=== PATIENT | male | born 1980 | race Caucasian/White ===

== ENCOUNTER 2022-10-19 15:59 | Emergency (ER) | payer OTHER, SELFPAY ==
[2022-10-19 16:00] VITALS: BP 144/86; PULSE 89; RESP 17; TEMP 36.7; O2SAT 99; BMI 22.4
[2022-10-19 16:06] VITALS: BP 144/86; PULSE 89; O2SAT 99
--- NOTE | 2022-10-19 16:17 | PC.NURSE ---
BLADDER SCAN AT THIS TIME 15MLS
--- NOTE | 2022-10-19 16:24 | CT_ITS ---
PROCEDURE INFORMATION: Exam: CT Abdomen And Pelvis Without Contrast Exam date and time: 10/19/2022 4:46 PM Age: 42 years old Clinical indication: Abdominal pain; Additional info: Abd pain TECHNIQUE: Imaging protocol: Computed tomography of the abdomen and pelvis without contrast. Radiation optimization: All CT scans at this facility use at least one of these dose optimization techniques: automated exposure control; mA and/or kV adjustment per patient size (includes targeted exams where dose is matched to clinical indication); or iterative reconstruction. REPORTING DATA: Count of CT and Cardiac NM exams in prior 12 months: This patient has received 0 known CTs and 0 known cardiac nuclear medicine studies in the 12 months prior to the current study. COMPARISON: No relevant prior studies available. FINDINGS: Limitations: The absence of intravenous contrast limits the assessment of vascular structures, lesions and lymphadenopathy. Lungs: Bibasilar subsegmental atelectasis noted. Liver: No focal hepatic lesions within the limits of noncontrast examination. Gallbladder and bile ducts: Gallbladder is distended without radiopaque cholelithiasis. No biliary ductal dilation. Pancreas: No peripancreatic fluid stranding. No main pancreatic ductal dilation. Spleen: No splenomegaly. Multiple splenic granulomas Adrenal glands: The adrenal glands are normal. Kidneys and ureters: No perinephric stranding. Bilateral punctate caliceal calculi. No hydroureteronephrosis on either side. Stomach and bowel: No bowel wall thickening or distention. Appendix: A normal appendix is identified. Intraperitoneal space: There is no evidence of free intraperitoneal or pelvic fluid. Vasculature: Aorta is nonaneurysmal. Lymph nodes: No evidence of retroperitoneal or mesenteric lymphadenopathy. Urinary bladder: Urinary bladder is unremarkable. Reproductive: Unremarkable as visualized. Bones/joints: No acute osseous abnormality. Soft tissues: Unremarkable. IMPRESSION: No perinephric stranding. Bilateral punctate caliceal calculi. No hydroureteronephrosis on either side.
--- NOTE | 2022-10-19 16:25 | HMH.EDABDPAI ---
Discharge Plan Disposition Patient Disposition: Home, Self-Care Condition: Good Referrals Follow up/Referrals: Provider,Referral, [Primary Care Provider] - See instructions Activity Restrictions/Add. Instructions Additional Instructions/Restrictions: Drink plenty of fluids to include water and oral rehydration solution such as Pedialyte or Gatorade. Return for worsening persistent pain, fever or other concerns. Clinical Impressions Clinical Impression: Abdominal pain Instructions Patient Instructions: DI for Acute Abdominal Pain Discharge ED Provider: Didier Mccabe Abdominal Pain HPI General Chief Complaint: Abdominal Pain Stated Complaint: abd pain Time Seen by Provider: 10/19/22 16:21 Mode of Arrival: Ambulatory Source of Information: Patient Limitations: No Limitations Description of Symptoms (Recalled from ER Triage Doc. by RN): PT REPORTS DECREASED URINARY OUTPUT FOR 2-3 DAYS WITH BACK AND ABDOMINAL PAIN. HX OF PROSTATITIS, RECENTLY TREATED ABOUT 1 MONTH AGO. 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 LAST USED ABOUT 3 DAYS AGO, HEROIN THIS AM History of Present Illness HPI narrative: Patient presents with a 3-day history of diffuse abdominal pain, back pain and flank pain as well as decreased urine output he does give a prior history of prostate infection as well as renal failure. He does have a known history of substance abuse and admits to having used heroin as recently as this morning stating however that he is also in drug court. He denies fever or vomiting. He denies diarrhea he denies chest pain Related Data Allergies Allergy/AdvReac Type Severity Reaction Status Date / Time Penicillins Allergy Verified 10/19/22 16:38 [facility] Disclaimer: The information contained in this section may have been updated after the patient was seen, as this information can be updated by other users. Social History Smoking Status: Current every day smoker alcohol intake: former current occupational status: employed Travel in the last 8 weeks: None ROS Obtained: Yes All systems reviewed & no additional complaints except as documented Physical Exam General General appearance: alert and in no apparent distress Head Head exam: atraumatic, normocephalic and normal inspection Eye Eye exam: Present normal appearance, PERRL and EOMI ENT ENT exam: Present normal exam, normal oropharynx, mucous membranes moist, TM's normal bilaterally and normal external ear exam Neck Neck exam: Present normal inspection, full ROM and trachea midline; Absent meningismus or lymphadenopathy Chest Chest inspection: Present normal inspection and symmetric chest wall rise; Absent tenderness Respiratory Respiratory exam: Present normal lung sounds bilaterally; Absent respiratory distress Cardiovascular Cardiovascular exam: Present regular rate and normal rhythm; Absent JVD Abdominal Exam Abdominal exam: Present tenderness (Mild periumbilical, extending into the flanks) Extremities Exam Extremities exam: Present normal inspection, full ROM and normal capillary refill; Absent calf tenderness Back Exam Back exam: Present normal inspection; Absent tenderness Neurological Exam Neurological exam: Present alert and oriented X3 Psychiatric Psychiatric exam: Present normal affect and normal mood Skin Skin exam: Present warm, dry, intact and normal color Lymphatic Lymphatic Findings: no adenopathy Medical Decision Making Medical Records Medical records reviewed: Yes I reviewed the patient's medical records. Alistair Inquiry Pt receiving controlled substance: No Alistair was queried for this patient: No Vital Signs: 10/19/22 16:00 10/19/22 16:06 10/19/22 17:00 Temperature 98.0 F Temperature Source Oral Pulse Rate 89 90 Pulse Rate [Radial] 89 Respiratory Rate 17 Blood Pressure 144/86 H 162/96 H Blood Pressure [Right Arm] 144/86 H Blood Pressure Mean 107 118 Blood Pr
--- NOTE | 2022-10-19 16:43 | PC.NURSE ---
PT TO CT
[2022-10-19 16:45] LABS: Basophils % 0.3 % (0.1-2.0); Eosinophils # 0.1 K/mm3 (0.0-0.4); Eosinophils % 0.6 % (0.1-12.0); Hematocrit 48.1 % (42.0-52.0); Hemoglobin 15.9 g/dL (14.1-18.0); Mean Corpuscular HGB Conc 33.1 g/dL (31.8-35.4); Mean Corpuscular Hemoglobin 31.3 pg (27.0-31.2); Mean Corpuscular Volume 94.7 fl (80-94); Mean Platelet Volume 7.5 fl (7.4-10.4); Monocytes # 0.5 K/mm3 (0.1-1.0); Monocytes % 4.6 % (1.7-9.3); Neutrophils # 8.9 K/mm3 (1.8-7.8); Neutrophils % 77.4 % (37.0-80.0); Platelet Count 239 K/mm3 (142-424); Red Blood Count 5.08 M/mm3 (4.60-6.20); Red Cell Distribution Width 13.5 % (11.5-17.5); White Blood Count 11.5 K/mm3 (4.8-10.8)
[2022-10-19 16:50] LABS: Chloride 93 mmol/L (98-107); Potassium 3.9 mmoL/L (3.5-5.1); Sodium 136 mmol/L (136-145)
--- NOTE | 2022-10-19 16:51 | PC.NURSE ---
PT RETURNED FROM CT
[2022-10-19 16:53] LABS: Alanine Aminotransferase 47 U/L (12-78); Albumin Level 4.5 g/dl (3.5-5.0); Albumin/Globulin Ratio 1.3 (1.1-1.8); Alkaline Phosphatase 85 U/L (38-126); Anion Gap 17.9 mEq/L (5-15); Aspartate Amino Transferase 39 U/L (17-59); Bilirubin,Total 0.5 mg/dl (0.2-1.3); Blood Urea Nitrogen 13 mg/dl (9-20); Calcium 8.9 mg/dl (8.4-10.2); Carbon Dioxide 29 mmol/L (22.0-30.0); Creatinine Clearance Estimated 71 mL/min (50-200); Estimated Glomerular Filt Rate 51 ml/min (>60); GFR (African American) 62 ML/MIN (>60); Globulin 3.5 g/dL (1.3-3.2); Glucose 96 mg/dl (74-100); Lipase 84 U/L (23-300)
[2022-10-19 17:00] VITALS: BP 162/96; PULSE 90; O2SAT 100
--- NOTE | 2022-10-19 17:40 | PC.NURSE ---
PT ASSISTED TO BR
[2022-10-19 18:02] LABS: Microscopic, Urine URINE MICROSCOPIC (MICROSCOPIC)
[2022-10-19 18:04] LABS: Appearance,Urine CLEAR (Clear); Bilirubin,Urine Negative (Negative); Blood, Urine Negative (Negative); Color,Urine YELLOW (Yellow); Glucose,Urine (UA) Negative (Negative); Ketones,Urine Negative (Negative); Leukocyte Esterase,Urine Negative (Negative); Nitrate,Urine Negative (Negative); Protein,Urine Negative (Negative); Specific Gravity, Urine 1.015 (1.005-1.030); Urobilinogen,Urine 0.2 EU/dl (0.2)
[2022-10-19 18:16] VITALS: BP 131/64; PULSE 88; RESP 18; TEMP 36.6; O2SAT 96
[2022-10-19 18:28] LABS: Bacteria,Urine 1+ /lpf; RBC,Urine Occasional #/hpf (0-3); Squamous Epithelial Cell,Urine Occasional #/hpf (0-5)
== END 2022-10-19 18:17 | disposition home or self-care (01) ==
PROVIDERS: Emergency Provider Emergency Medicine
DX: R10.9 Unspecified abdominal pain (principal); F17.200 Nicotine dependence, unspecified, uncomplicated
CPT/HCPCS: 74176; 76705; 80053; 81001; 83690; 85025; 96361; 96374; 99284; 99285; J2405

== ENCOUNTER 2023-04-10 05:30 | Emergency (ER) | payer OTHER, SELFPAY ==
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
[2023-04-10 05:41] VITALS: RESP 20; TEMP 37; O2SAT 98
--- NOTE | 2023-04-10 05:41 | XR_ITS ---
PROCEDURE INFORMATION: Exam: XR Right Wrist Exam date and time: 04/10/2023 5:47 AM Age: 42 years old Clinical indication: Pain; Wrist; Right TECHNIQUE: Imaging protocol: Radiologic exam of the right wrist. Views: 3 or more views. COMPARISON: CR XR HAND RT MIN 3V 04/10/2023 5:45 AM FINDINGS: Bones/joints: Normal. Soft tissues: Normal. IMPRESSION: No acute findings.
--- NOTE | 2023-04-10 05:41 | XR_ITS ---
PROCEDURE INFORMATION: Exam: XR Right Forearm Exam date and time: 04/10/2023 5:49 AM Age: 42 years old Clinical indication: Pain; Lower or forearm; Right TECHNIQUE: Imaging protocol: Radiologic exam of the right forearm. Views: 2 views. COMPARISON: CR XR WRIST RT MIN 3V 04/10/2023 5:47 AM FINDINGS: Bones/joints: Normal. Soft tissues: Normal. IMPRESSION: No acute findings.
--- NOTE | 2023-04-10 05:41 | XR_ITS ---
PROCEDURE INFORMATION: Exam: XR Left Wrist Exam date and time: 04/10/2023 5:40 AM Age: 42 years old Clinical indication: Pain; Wrist; Left TECHNIQUE: Imaging protocol: Radiologic exam of the left wrist. Views: 3 or more views. COMPARISON: No relevant prior studies available. FINDINGS: Bones/joints: Normal. Soft tissues: Normal. IMPRESSION: No acute findings.
--- NOTE | 2023-04-10 05:41 | XR_ITS ---
PROCEDURE INFORMATION: Exam: XR Right Hand Exam date and time: 04/10/2023 5:45 AM Age: 42 years old Clinical indication: Pain; Hand; Right TECHNIQUE: Imaging protocol: Radiologic exam of the right hand. Views: 3 or more views. COMPARISON: No relevant prior studies available. FINDINGS: Bones/joints: Normal. No acute fracture. Soft tissues: Normal. IMPRESSION: No acute osseous or soft tissue abnormality.
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
[2023-04-10 05:49] VITALS: BP 180/130; PULSE 113; RESP 20; TEMP 37; O2SAT 98
[2023-04-10 05:57] LABS: Basophils # 0.1 K/mm3 (0-0.2); Basophils % 0.5 % (0.1-2.0); Eosinophils # 0.2 K/mm3 (0.0-0.4); Eosinophils % 1.4 % (0.1-12.0); Hematocrit 47.3 % (42.0-52.0); Hemoglobin 15.6 g/dL (14.1-18.0); Lymphocytes # 2.3 K/mm3 (0.7-4.5); Lymphocytes % 19.4 % (10-50); Mean Corpuscular Hemoglobin 31.3 pg (27.0-31.2); Mean Corpuscular Volume 94.7 fl (80-94); Mean Platelet Volume 7.4 fl (7.4-10.4); Monocytes # 0.9 K/mm3 (0.1-1.0); Monocytes % 7.1 % (1.7-9.3); Neutrophils # 8.5 K/mm3 (1.8-7.8); Neutrophils % 71.5 % (37.0-80.0); Platelet Count 329 K/mm3 (142-424); Red Cell Distribution Width 13.3 % (11.5-17.5); White Blood Count 11.9 K/mm3 (4.8-10.8)
[2023-04-10 06:02] LABS: Chloride 100 mmol/L (98-107)
[2023-04-10 06:03] LABS: Sodium 139 mmol/L (136-145)
[2023-04-10 06:05] LABS: Alanine Aminotransferase 33 U/L (12-78); Alkaline Phosphatase 115 U/L (38-126); Aspartate Amino Transferase 32 U/L (17-59); Bilirubin,Total 0.5 mg/dl (0.2-1.3); Blood Urea Nitrogen 12 mg/dl (9-20); Creatinine Clearance Estimated 108 mL/min (50-200); Estimated Glomerular Filt Rate 92 ml/min (>60); GFR (African American) 111 ML/MIN (>60)
[2023-04-10 06:06] LABS: Albumin Level 4.7 g/dl (3.5-5.0); Albumin/Globulin Ratio 1.1 (1.1-1.8); Carbon Dioxide 30 mmol/L (22.0-30.0); Globulin 4.2 g/dL (1.3-3.2); Glucose 138 mg/dl (74-100); Lactic Acid 1.3 mmol/L (0.7-2.1); Total Protein,Serum 8.9 g/dl (6.3-8.2)
[2023-04-10 06:18] LABS: C-Reactive Protein 26.1 mg/L (0-4)
--- NOTE | 2023-04-10 06:27 | PC.NURSE ---
[facility] will call back when physician is available.
--- NOTE | 2023-04-10 06:28 | PC.NURSE ---
Pharmacy contacted for vancomycin order, spoke to Almas
--- NOTE | 2023-04-10 06:29 | PC.NURSE ---
o/p with at this time.
--- NOTE | 2023-04-10 06:29 | PC.NURSE ---
will call back when physician is available to take call.
[2023-04-10 06:44] LABS: Erythrocyte Sedimentation Rate 20 mm/hr (0-15)
--- NOTE | 2023-04-10 07:59 | PC.NURSE ---
rounded on pt at this time, pt sitting up on side of the bed, visitor with pt. IV antibiotics infusing. Pt states no needs at this time. Offered pt breakfast tray, pt agreed. contacted dietary for tray for pt.
--- NOTE | 2023-04-10 08:34 | PC.NURSE ---
Pt ambulatory to bathroom. No other needs voiced.
[2023-04-10 08:38] VITALS: BP 150/96; PULSE 83; O2SAT 99
[2023-04-10 09:17] VITALS: BP 116/78; PULSE 81; RESP 18; TEMP 37.2; O2SAT 98
--- NOTE | 2023-04-13 19:04 | PC.NURSE ---
DR MELÉNDEZ REVIEWED CHART AND MEDICATIONS, NO NEW ORDERS AT THIS TIME CALLED TO FOLLOW-UP WITH PT, NO ANSWER. MESSAGE LEFT
== END 2023-04-10 09:19 | disposition left against medical advice (07) ==
PROVIDERS: Emergency Provider Emergency Medicine
DX: L02.512 Cutaneous abscess of left hand (principal); L03.114 Cellulitis of left upper limb; M25.531 Pain in right wrist; F17.210 Nicotine dependence, cigarettes, uncomplicated
CPT/HCPCS: 10061; 73090; 73110; 73130; 80053; 83605; 85025; 85651; 86140; 87040; 87070; 87205; 96365; 96366; 96367; 96374; 96375; 99284; J0696

== ENCOUNTER 2023-09-30 05:00 | Emergency (ER) | payer OTHER, SELFPAY ==
[2023-09-30] VITALS (11 sets, daily range): BP systolic 109–208; BP diastolic 66–108; PULSE 54–73; RESP 12–20; TEMP 36.5; O2SAT 97–100; BMI 23.7
--- NOTE | 2023-09-30 05:04 | [facility].EDGENADL ---
Discharge Plan Disposition Patient Disposition: Home, Self-Care Prescriptions Prescriptions: New epinephrine [EpiPen] 0.3 mg/0.3 mL auto-injector 0.3 mg IM Q10M PRN (Reason: anaphylaxis) Qty: 2 0RF Rx Instructions: for 2 doses sulfamethoxazole-trimethoprim [Bactrim DS] 800-160 mg tablet 1 tab PO BID 10 Days Qty: 20 0RF No Action multivitamin Tablet 1 tab PO DAILY Patient Comments: Take 1 tablet by mouth once a day supplement tizanidine 2 mg tablet 2 mg PO DAILY Patient Comments: Take 1 tablet by mouth three times a day as needed meloxicam 15 mg tablet 15 mg PO DAILY tamsulosin 0.4 mg capsule 0.4 mg PO DAILY Patient Comments: Take 1 capsule by mouth at bedtime multivitamin with folic acid [Tab-A-Milan] 400 mcg tablet 1 tab PO DAILY cephalexin 500 mg capsule 500 mg PO TID 10 Days Qty: 30 0RF sulfamethoxazole-trimethoprim [Bactrim DS] 800-160 mg tablet 1 tab PO Q12H 14 Days Qty: 28 0RF naproxen 500 mg tablet 500 mg PO Q12H Qty: 20 0RF Referrals Follow up/Referrals: Provider,Referral, MD [Primary Care Provider] - See instructions Activity Restrictions/Add. Instructions Additional Instructions/Restrictions: You were evaluated in the emergency department today. At this time, it is felt that your symptoms are related to an allergic reaction. Please avoid taking the medications that you just started today, as one of them could have potentially triggered this. Call your primary care provider and notify them of the reaction. 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 You may take Benadryl every 8 hours as needed for symptoms. Return to the emergency department for any new or worsening symptoms. Clinical Impressions Clinical Impression: Anaphylaxis Instructions Patient Instructions: DI for General Allergic Reactions, DI for Adverse Drug Reaction -- Allergic Discharge ED Provider: Didier Good General Adult HPI <Oxana Arnold DO - Last Filed: 09/30/23 06:46> General Chief complaint: Allergic Reaction Stated complaint: allergic reaction Time Seen by Provider: 09/30/23 05:02 History of Present Illness HPI narrative: This patient is a 43-year-old male with a history of substance abuse on Suboxone presenting to the emergency department for evaluation with concern for possible allergic reaction. Patient reports that he used Flonase approximately 15 minutes ago and immediately started having tightness and swelling in his throat, face, and mouth and states that he feels like he cannot breathe or swallow. He notes he has never used Flonase before in the past. He thinks he is having allergic reaction to it. He notes that he took the Flonase because he was evaluated yesterday by his primary care provider and was given it for nasal congestion. He also notes that he started Levaquin and tamsulosin yesterday for prostate issues, which he states that he is has taken before. In addition to the sensation of oropharyngeal swelling, difficulty breathing, dysphagia, and throat irritation, patient also has nausea and hoarseness. He notes that he was not experiencing issues like this prior to using the Flonase. He notes his only known allergy is to penicillins, and that was a childhood allergy for which he is unsure of the reaction. No other new medications, foods, detergents, or products. Related Data Home Medications Medication Instructions Recorded Confirmed meloxicam 15 mg tablet 15 mg PO DAILY 04/10/23 04/10/23 multivitamin 1 tab PO DAILY 04/10/23 04/10/23 multivitamin with folic acid 400 1 tab PO DAILY 04/10/23 04/10/23 mcg tablet (Tab-A-Milan) tamsulosin 0.4 mg capsule 0.4 mg PO DAILY 04/10/23 04/10/23 tizanidine 2 mg tablet 2 mg PO DAILY 04/10/23 04/10/23 Previous Rx's Medication Instructions Recorded cephalexin 500 mg capsule 500 mg PO TID 10 days #30 caps 04/10/23 naproxen 500 mg tablet 500 mg PO Q12H #20 tabs 04/10/23 sulfamethoxazole 800 1 tab PO Q12H 14 days #28 tabs 04/10/23 mg-trimethoprim 160 mg tablet (Bactrim DS) epinephrine 0.3 mg/0.3 mL 0.3 mg (0.3 mL) IM Q10M PRN 09/30/23 injection, auto-injector (EpiPen) anaphylaxis #2 ea sulfamethoxazole 800 1 tab PO BID 10 days #20 tabs 09/30/23 mg-trimethoprim 160 mg tablet (Bactrim DS) Allergies Allergy/AdvReac Type Severity Reaction Status Date / Time levofloxacin Allergy Severe angioedema Verified 09/30/23 08:06 Penicillins Allergy Verified 10/19/22 16:38 PFSH <Oxana Arnold DO - Last Filed: 09/30/23 06:46> [facility] Disclaimer: The information contained in this section may have been updated after the patient was seen, as this information can be updated by other users. Social History Smoking Status: Former smoker alcohol intake: former current occupational status: employed Travel in the last 8 weeks: None <Oxana Arnold DO - Last Filed: 09/30/23 06:46> ROS Obtained: Yes All systems reviewed & no additional complaints except as documented Physical Exam <Oxana Arnold DO - Last Filed: 09/30/23 06:46> General General appearance: alert and anxious Comment: Anxious appearing, clutching his chest/neck Head Head exam: atraumatic and normocephalic Eye Eye exam: Present normal appearance, PERRL and EOMI ENT ENT exam: Present normal oropharynx, mucous membranes moist, normal external ear exam and other (Patient does have lip swelling, especially lower lip. No tongue swelling or uvular edema noted. Patient does have hoarse voice. Poor dentition noted.) Neck Neck exam: Present normal inspection, full ROM and trachea midline; Absent tenderness, meningismus or lymphadenopathy Chest Chest inspection: Present normal inspection and symmetric chest wall rise; Absent tenderness Respiratory Respiratory exam: Present normal lung sounds bilaterally; Absent respiratory distress, wheezes, stridor or accessory muscle use Cardiovascular Cardiovascular exam: Present regular rate and normal rhythm Abdominal Exam Abdominal exam: Present soft; Absent distention, tenderness or guarding Extremities Exam Extremities exam: Present normal inspection, full ROM and normal capillary refill; Absent tenderness or edema Back Exam Back exam: Present normal inspection and full ROM; Absent tenderness Neurological Exam Neurological exam: Present alert, oriented X3, CN II-XII intact and normal gait; Absent motor sensory deficit Psychiatric Psychiatric exam: Present anxious Skin Skin exam: Present warm and dry Medical Decision Making <Oxana Arnold DO - Last Filed: 09/30/23 06:46> Medical Records Medical records reviewed: Yes I reviewed the patient's medical records. Alistair Inquiry Pt receiving controlled substance: No Vital Signs: 09/30/23 05:06 09/30/23 05:07 09/30/23 05:15 Temperature Temperature Source Pulse Rate 63 Pulse Rate [Left] 73 Respiratory Rate 20 17 Blood Pressure 162/94 H 168/108 H Blood Pressure [Right Arm] 208/97 H Blood Pressure Mean Blood Pressure Mean [Right Arm] 134 Blood Pressure Source [Right Arm] Automatic Cuff 02 Sat by Pulse Oximetry 100 99 Oxygen Delivery Method Room Air 09/30/23 05:30 09/30/23 05:45 09/30/23 06:01 Temperature Temperature Source Pulse Rate 58 L 54 L 64 Pulse Rate [Left] Respiratory Rate 15 14 12 Blood Pressure 151/87 H 125/74 160/100 H Blood Pressure [Right Arm] Blood Pressure Mean Blood Pressure Mean [Right Arm] Blood Pressure Source [Right Arm] 02 Sat by Pulse Oximetry 100 98 99 Oxygen Delivery Method 09/30/23 06:15 09/30/23 06:30 09/30/23 07:30 Temperature Temperature Source Pulse Rate 61 55 L Pulse Rate [Left] Respiratory Rate 13 17 Blood Pressure 139/95 H 141/85 H 109/66 L Blood Pressure [Right Arm] Blood Pressure Mean 80 Blood Pressure Mean [Right Arm] Blood Pressure Source [Right Arm] 02 Sat by Pulse Oximetry 100 99 Oxygen Delivery Method 09/30/23 08:01 09/30/23 08:12 Temperature 97.7 F Temperature Source Oral Pulse Rate 57 L 58 L Pulse Rate [Left] Respiratory Rate 16 15 Blood Pressure 140/91 H 140/91 H Blood Pressure [Right Arm] Blood Pressure Mean Blood Pressure Mean [Right Arm] Blood Pressure Source [Right Arm] 02 Sat by Pulse Oximetry 97 Oxygen Delivery Method Room Air Room Air Lab Data Lab results reviewed: Yes I reviewed the patient's lab results. Orders (Tests/Meds): ED MEDICATIONS Generic Name Dose Route Start Last Admin Trade Name Freq PRN Reason Stop Dose Admin Sodium Chloride 8 ml 09/30/23 05:02 Sodium Chloride 0.9% 10ml Vial IV 10/30/23 05:01 NEEDED PRN dilute pepcid Discontinued Medications Generic Name Dose Route Start Last Admin Trade Name Freq PRN Reason Stop Dose Admin Diphenhydramine HCl 50 mg 09/30/23 05:02 09/30/23 05:09 Diphenhydramine 50mg/Ml Vial IV 09/30/23 05:03 50 mg ONCE ONE Administration Epinephrine HCl 0.3 mg 09/30/23 05:10 09/30/23 05:11 Epinephrine 1 Mg/Ml Ampul IM 09/30/23 05:11 0.3 mg ONCE ONE Administration Famotidine 20 mg 09/30/23 05:02 09/30/23 05:09 Famotidine 20mg/2ml Vial IV 09/30/23 05:03 20 mg ONCE ONE Administration Lactated Ringer's 1,000 mls @ 999 mls/hr 09/30/23 05:03 09/30/23 05:09 Lactated Ringer's 1000 Ml Bag IV 09/30/23 06:03 999 mls/hr .Q1H1M ONE Administration Methylprednisolone Sodium Succinate 125 mg 09/30/23 05:02 09/30/23 05:09 Methylprednisolone Sod Succ 125mg Vial IV 09/30/23 05:03 125 mg ONCE ONE Administration Ondansetron HCl 4 mg 09/30/23 05:02 09/30/23 05:09 Ondansetron 4mg/2ml Vial IV 09/30/23 05:03 4 mg ONCE ONE Administration Trimethoprim/Sulfamethoxazole 1 each 09/30/23 08:03 09/30/23 08:10 Sulfa/Trimethoprim 1 Tablet PO 09/30/23 08:04 1 each ONCE ONE Administration Medical Decision Narrative: In summary, this patient is a 43-year-old male presenting to the Emergency Department for evaluation of possible allergic reaction with sensation of oropharyngeal swelling, throat swelling, dysphagia, difficulty breathing, and nausea which he reports started after using Flonase, which he was taking for the first time for nasal congestion. He also started Levaquin approximately 1 hour ago. Differential diagnoses considered include but are not limited to allergic reaction, anaphylaxis, angioedema, viral syndrome, pharyngitis. Ruling out the most morbid conditions drove assessment. It should be noted patient's history includes substance abuse which may or may not be at goal therapy. This complicates all aspects of care by increasing patient's risk for morbidity. On exam, the patient has hoarse voice and lip swelling, but he does not have any stridor, wheezing, uvular edema, tongue swelling, or other concerns. Given that he has these respiratory symptoms as well as nausea, patient could possibly be having anaphylaxis, so decision was made to administer 0.3 mg of IM epinephrine as well as IV Benadryl, methylprednisolone, Pepcid, and Zofran. At this time based on acute onset of symptoms and allergic reaction being the most likely diagnosis, I do not feel the labs or imaging are indicated. Will continue to monitor and reassess the patient. At 0530, patient was placed in ED observation status pending reassessments and monitoring to evaluate for recurrence of symptoms and determine whether or not the patient would be appropriate for discharge versus admission. The patient was provided serial reevaluations and cardiac monitoring while awaiting ultimate disposition. On multiple subsequent reassessments, the patient continues to have improving symptoms. He is resting comfortably with normal vital signs on cardiac telemetry. No respiratory distress or other concerns noted. At 0700, patient care signed out the oncoming provider, Dr. Good, pending continued monitoring. <Didier Good MD - Last Filed: 09/30/23 08:47> Vital Signs: 09/30/23 05:06 09/30/23 05:07 09/30/23 05:15 Temperature Temperature Source Pulse Rate 63 Pulse Rate [Left] 73 Respiratory Rate 20 17 Blood Pressure 162/94 H 168/108 H Blood Pressure [Right Arm] 208/97 H Blood Pressure Mean Blood Pressure Mean [Right Arm] 134 Blood Pressure Source [Right Arm] Automatic Cuff 02 Sat by Pulse Oximetry 100 99 Oxygen Delivery Method Room Air 09/30/23 05:30 09/30/23 05:45 09/30/23 06:01 Temperature Temperature Source Pulse Rate 58 L 54 L 64 Pulse Rate [Left] Respiratory Rate 15 14 12 Blood Pressure 151/87 H 125/74 160/100 H Blood Pressure [Right Arm] Blood Pressure Mean Blood Pressure Mean [Right Arm] Blood Pressure Source [Right Arm] 02 Sat by Pulse Oximetry 100 98 99 Oxygen Delivery Method 09/30/23 06:15 09/30/23 06:30 09/30/23 07:30 Temperature Temperature Source Pulse Rate 61 55 L Pulse Rate [Left] Respiratory Rate 13 17 Blood Pressure 139/95 H 141/85 H 109/66 L Blood Pressure [Right Arm] Blood Pressure Mean 80 Blood Pressure Mean [Right Arm] Blood Pressure Source [Right Arm] 02 Sat by Pulse Oximetry 100 99 Oxygen Delivery Method 09/30/23 08:01 09/30/23 08:12 Temperature 97.7 F Temperature Source Oral Pulse Rate 57 L 58 L Pulse Rate [Left] Respiratory Rate 16 15 Blood Pressure 140/91 H 140/91 H Blood Pressure [Right Arm] Blood Pressure Mean Blood Pressure Mean [Right Arm] Blood Pressure Source [Right Arm] 02 Sat by Pulse Oximetry 97 Oxygen Delivery Method Room Air Room Air Orders (Tests/Meds): ED MEDICATIONS Generic Name Dose Route Start Last Admin Trade Name Freq PRN Reason Stop Dose Admin Sodium Chloride 8 ml 09/30/23 05:02 Sodium Chloride 0.9% 10ml Vial IV 10/30/23 05:01 NEEDED PRN dilute pepcid Discontinued Medications Generic Name Dose Route Start Last Admin Trade Name Freq PRN Reason Stop Dose Admin Diphenhydramine HCl 50 mg 09/30/23 05:02 09/30/23 05:09 Diphenhydramine 50mg/Ml Vial IV 09/30/23 05:03 50 mg ONCE ONE Administration Epinephrine HCl 0.3 mg 09/30/23 05:10 09/30/23 05:11 Epinephrine 1 Mg/Ml Ampul IM 09/30/23 05:11 0.3 mg ONCE ONE Administration Famotidine 20 mg 09/30/23 05:02 09/30/23 05:09 Famotidine 20mg/2ml Vial IV 09/30/23 05:03 20 mg ONCE ONE Administration Lactated Ringer's 1,000 mls @ 999 mls/hr 09/30/23 05:03 09/30/23 05:09 Lactated Ringer's 1000 Ml Bag IV 09/30/23 06:03 999 mls/hr .Q1H1M ONE Administration Methylprednisolone Sodium Succinate 125 mg 09/30/23 05:02 09/30/23 05:09 Methylprednisolone Sod Succ 125mg Vial IV 09/30/23 05:03 125 mg ONCE ONE Administration Ondansetron HCl 4 mg 09/30/23 05:02 09/30/23 05:09 Ondansetron 4mg/2ml Vial IV 09/30/23 05:03 4 mg ONCE ONE Administration Trimethoprim/Sulfamethoxazole 1 each 09/30/23 08:03 09/30/23 08:10 Sulfa/Trimethoprim 1 Tablet PO 09/30/23 08:04 1 each ONCE ONE Administration Medical Decision Narrative: In summary, this patient is a 43-year-old male presenting to the Emergency Department for evaluation of possible allergic reaction with sensation of oropharyngeal swelling, throat swelling, dysphagia, difficulty breathing, and nausea which he reports started after using Flonase, which he was taking for the first time for nasal congestion. He also started Levaquin approximately 1 hour ago. Differential diagnoses considered include but are not limited to allergic reaction, anaphylaxis, angioedema, viral syndrome, pharyngitis. Ruling out the most morbid conditions drove assessment. It should be noted patient's history includes substance abuse which may or may not be at goal therapy. This complicates all aspects of care by increasing patient's risk for morbidity. On exam, the patient has hoarse voice and lip swelling, but he does not have any stridor, wheezing, uvular edema, tongue swelling, or other concerns. Given that he has these respiratory symptoms as well as nausea, patient could possibly be having anaphylaxis, so decision was made to administer 0.3 mg of IM epinephrine as well as IV Benadryl, methylprednisolone, Pepcid, and Zofran. At this time based on acute onset of symptoms and allergic reaction being the most likely diagnosis, I do not feel the labs or imaging are indicated. Will continue to monitor and reassess the patient. At 0530, patient was placed in ED observation status pending reassessments and monitoring to evaluate for recurrence of symptoms and determine whether or not the patient would be appropriate for discharge versus admission. The patient was provided serial reevaluations and cardiac monitoring while awaiting ultimate disposition. On multiple subsequent reassessments, the patient continues to have improving symptoms. He is resting comfortably with normal vital signs on cardiac telemetry. No respiratory distress or other concerns noted. At 0700, patient care signed out the oncoming provider, Dr. Good, pending continued monitoring. Latisha: I assumed primary responsibility for this patient after signout from previous physician. Initial evaluation 7 AM, patient sleeping comfortably on my evaluation, stating he is thirsty when being woken up. Saturating appropriately, well-appearing. Patient to be taken off of levofloxacin, this conversation was had with him and he voices understanding. I gave patient first dose of Bactrim here in the emergency department and observed him until 9 AM, patient had no return of anaphylactic symptoms after 4 hours after epinephrine. I sent Bactrim to the pharmacy because he has been on this multiple times in the past. Recommend he follow-up with his family doctor. EpiPen's also sent to the pharmacy. Because patient at baseline without signs or symptoms of clinical decompensation, deemed appropriate for discharge. Results were relayed to patient who voiced understanding and were agreeable to outpatient management and follow up. I discussed my clinical impression with patient and answered all questions. At this time, the evidence for any other entities in the differential is insufficient to warrant any further testing or ED observation. This was explained as well. Advisory was given that persistent or worsening symptoms require further evaluation. I confirmed the understanding of this discussion. Critical Care <Oxana Arnold, DO - Last Filed: 09/30/23 06:46> Critical Care Time Critical Care Time: No
[2023-09-30] MEDS: ONDANSETRON 4MG/2ML VIAL 4 MG IV (05:09)
[2023-09-30] MEDS: diphenhydrAMINE 50MG/ML VIAL 50 MG IV (05:09)
[2023-09-30] MEDS: LACTATED RINGERS 1000ML 1,000 ML 999 ML IV (05:09)
[2023-09-30] MEDS: METHYLPREDNISOLONE SOD SUCC 125MG VIAL 125 MG IV (05:09)
[2023-09-30] MEDS: FAMOTIDINE 20MG/2ML VIAL 20 MG IV (05:09)
[2023-09-30] MEDS: EPINEPHrine 1 MG/ML AMPUL 0.299999999999999989 MG IM (05:11)
--- NOTE | 2023-09-30 06:33 | PC.NURSE ---
patient sleeping, call light within reach
--- NOTE | 2023-09-30 08:00 | PC.NURSE ---
Dr. Good at bedside
[2023-09-30] MEDS: SULFA/TRIMETHOPRIM 1 TABLET 1 EACH PO (08:10)
--- NOTE | 2023-09-30 08:29 | PC.NURSE ---
rounded on pt. emptied urinal. pt voided 1L. pt asked how much longer for discharge. notified nurse of request.
== END 2023-09-30 08:53 | disposition home or self-care (01) ==
PROVIDERS: Emergency Provider Emergency Medicine
DX: T78.2XXA Anaphylactic shock, unspecified, initial encounter (principal); R11.0 Nausea; R22.1 Localized swelling, mass and lump, neck; R49.0 Dysphonia; Z87.891 Personal history of nicotine dependence
CPT/HCPCS: 96361; 96372; 96374; 96375; 99285; J2405